=== PATIENT | female | born 1990 | race African-American/Black ===

== ENCOUNTER 2017-08-23 22:53 | Emergency (ER) | payer BC ==
[2017-08-23 23:32] LABS: APPEARANCE,URINE CLEAR; BILIRUBIN,URINE NEGATIVE (NEGATIVE); COLOR,URINE YELLOW; GLUCOSE, URINE NEGATIVE (NEGATIVE); KETONES,URINE NEGATIVE (NEGATIVE); LEUKOCYTE ESTERASE,URINE NEGATIVE (NEGATIVE); NITRITE,URINE NEGATIVE (NEGATIVE); PROTEIN,URINE NEGATIVE (NEGATIVE); URINE SPECIFIC GRAVITY 1.017; UROBILINOGEN,URINE NEGATIVE mg/dL (<2.0)
[2017-08-23 23:37] LABS: ABSOLUTE EOSINOPHILS # (AUTO) 0.1 10^3/uL (0.0-0.6); ABSOLUTE LYMPHOCYTES (AUTO) 1.7 10^3/uL (0.5-4.7); ABSOLUTE MONOCYTES (AUTO) 0.5 10^3/uL (0.1-1.4); ABSOLUTE NEUT (AUTO) 3.2 10^3/uL (1.7-8.2); BASOPHILS % (AUTO) 0.7 % (0-2); EOSINOPHILS % (AUTO) 1.4 % (0-6); HEMATOCRIT 35.5 % (36.0-47.0); HEMOGLOBIN 11.3 g/dL (12.0-15.5); LYMPHOCYTES % (AUTO) 31.1 % (13-45); MEAN CORPUSCULAR HEMOGLOBIN 24.9 pg (27.0-33.4); MEAN CORPUSCULAR HGB CONC 31.9 g/dL (32.0-36.0); MEAN CORPUSCULAR VOLUME 78 fl (80-97); MONOCYTES % (AUTO) 9.6 % (3-13); PLATELET COUNT 154 10^3/uL (150-450); RED BLOOD COUNT 4.55 10^6/uL (3.72-5.28); RED CELL DISTRIBUTION WIDTH 15.6 % (11.5-14.0); SEGMENTED NEUTROPHILS % (AUTO) 57.2 % (42-78); TOTAL CELLS COUNTED % (AUTO) 100 %; WHITE BLOOD COUNT 5.5 10^3/uL (4.0-10.5)
[2017-08-23 23:46] LABS: ALANINE AMINOTRANSFERASE 22 U/L (9-52); ALKALINE PHOSPHATASE 64 U/L (38-126); ANION GAP 11 (5-19); ASPARTATE AMINO TRANSFERASE 17 U/L (14-36); BILIRUBIN,DIRECT 0.1 mg/dL (0.0-0.4); BILIRUBIN,TOTAL 0.3 mg/dL (0.2-1.3); BLOOD UREA NITROGEN 7 mg/dL (7-20); CALCIUM 9.2 mg/dL (8.4-10.2); CARBON DIOXIDE 23 mmol/L (22-30); CHLORIDE 104 mmol/L (98-107); GLUCOSE 116 mg/dL (75-110); LIPASE 101.1 U/L (23-300); SODIUM 137.6 mmol/L (137-145); TOTAL PROTEIN 6.9 g/dL (6.3-8.2)
--- NOTE | 2017-08-24 01:39 | ER Document Report ---
ED General - General Chief Complaint: Abdominal Pain Stated Complaint: ABDOMINAL PAIN Time Seen by Provider: 08/23/17 23:16 Notes: Patient is a 27 year old female without past medical history, no prior surgical history who presents with 3 days of left lower quadrant abdominal pain. She does describe this as a dull, constant, cramping pain. States that it has been worsening since onset 3 days ago. Nothing improves or worsens this pain. She denies any history of similar symptoms in the past. No vaginal bleeding or discharge. She reports that her last menstrual period was on August 18. She has not seen her primary care doctor regarding today's concerns. She denies any associated fever, vomiting, diarrhea, headache or neck pain. TRAVEL OUTSIDE OF THE [place] IN LAST 30 DAYS: No - Related Data Allergies/Adverse Reactions: cetirizine HCl [From [facility]] Allergy (Unknown, Verified 08/23/17 23:23) Past Medical History - General Information source: Patient - Social History Smoking Status: Never Smoker Frequency of alcohol use: None Drug Abuse: None Lives with: Family Family History: Reviewed & Not Pertinent Patient has suicidal ideation: No Patient has homicidal ideation: No Renal/ Medical History: Denies: Hx Peritoneal Dialysis - Immunizations Immunizations up to date: Yes Hx Diphtheria, Pertussis, Tetanus Vaccination: Yes Hx Pneumococcal Vaccination: 05/20/00 Review of Systems - Review of Systems Notes: Constitutional: Negative for fever. HENT: Negative for sore throat. Eyes: Negative for visual changes. Cardiovascular: Negative for chest pain. Respiratory: Negative for shortness of breath. Gastrointestinal: Positive for abdominal pain Genitourinary: Negative for dysuria. Musculoskeletal: Negative for back pain. Skin: Negative for rash. Neurological: Negative for headaches, weakness or numbness. 10 point ROS negative except as marked above and in HPI. Physical Exam - Vital signs Vitals: Temp Pulse Resp BP Pulse Ox 98.3 F 82 18 118/62 99 08/23/17 23:03 08/23/17 23:03 08/23/17 23:03 08/23/17 23:03 08/23/17 23:03 Interpretation: Normal Notes: PHYSICAL EXAMINATION: GENERAL: Well-appearing, well-nourished and in no acute distress. HEAD: Atraumatic, normocephalic. EYES: Pupils equal round and reactive to light, extraocular movements intact, sclera anicteric, conjunctiva are normal. ENT: nares patent, oropharynx clear without exudates. Moist mucous membranes. NECK: Normal range of motion, supple without lymphadenopathy LUNGS: Breath sounds clear to auscultation bilaterally and equal. No wheezes rales or rhonchi. HEART: Regular rate and rhythm without murmurs ABDOMEN: Soft, mild left lower abdominal pain but no other localized pain on palpation, normoactive bowel sounds. No guarding, no rebound. No masses appreciated. EXTREMITIES: Normal range of motion, no pitting or edema. No cyanosis. NEUROLOGICAL: No focal neurological deficits. Moves all extremities spontaneously and on command. PSYCH: Normal mood, normal affect. SKIN: Warm, Dry, normal turgor, no rashes or lesions noted. Course - Re-evaluation Re-evalutation: 08/24/17 01:37 Patient is currently and presenting with lower abdominal pain. No vaginal bleeding or discharge. Patient transvaginal ultrasound does show an intrauterine although no heart rate at this time. Patient denies any dysuria and urinalysis is not consistent with an acute urinary tract infection. The patient does not have any focal right lower quadrant tenderness , rebound or guarding to suggest acute appendicitis. No right upper quadrant tenderness to suggest cholestasis of or an acute cholecystitis. Patient has tolerated oral intake here in the emergency department without difficulty. Vitals are within normal limits. At this time will discharge with return precautions and follow-up recommendations. Verbal discharge instructions given a the bedside and opportunity for questions given. Medication warnings reviewed. Patient is in agreement with this plan and has verbalized understanding of return precautions and the need for primary care follow-up in the next 24-72 hours. - Vital Signs Vital signs: Temp Pulse Resp BP Pulse Ox 98.3 F 82 18 118/62 99 08/23/17 23:03 08/23/17 23:03 08/23/17 23:03 08/23/17 23:03 08/23/17 23:03 - Laboratory Result Diagrams: 08/23/17 23:19 08/23/17 23:19 Laboratory results interpreted by me: 08/23/17 08/23/17 08/23/17 23:19 23:19 23:19 Hgb 11.3 L Hct 35.5 L MCV 78 L MCH 24.9 L MCHC 31.9 L RDW 15.6 H Glucose 116 H Serum HCG, Qual POSITIVE H Beta HCG, Quant 08/23/17 23:19 Hgb Hct MCV MCH MCHC RDW Glucose Serum HCG, Qual Beta HCG, Quant 81406.00 H - Diagnostic Test Radiology reviewed: Image reviewed, Reports reviewed Discharge - Discharge Clinical Impression: Abdominal pain, left lower quadrant, First trimester Condition: Good Disposition: HOME, SELF-CARE Additional Instructions: You were seen for abdominal pain during . Your ultrasound shows an intrauterine that does not yet have a heart rate. The exact cause your pain is uncertain but is likely related to your developing baby. Please follow-up with your GLOVE TAGGER in the next 24-48 hours. Return to the emergency department immediately if you have worsening of your pain, have persistent vomiting, develop a fever of greater than 100.4F, begin to have vaginal bleeding, or any other symptoms that are worrisome to you. Referrals: LICO MORENO MD [ACTIVE STAFF] - 08/26/17
--- NOTE | 2017-08-24 01:57 | RADIOLOGY REPORT (SQ) ---
EXAM DESCRIPTION: U/S OB TRANSVAGINAL W/O DOP CLINICAL HISTORY: 27 years Female, llq pain, preg. Last menstrual period reported as 08/18/2017 COMPARISON: None. TECHNIQUE: Complete first trimester obstetrical ultrasound with transvaginal imaging. FINDINGS: The uterus measures 12.9 x 7.0 x 7.8 cm. Within the lower portion of the endometrium there is a gestational sac. There is a pole within the gestational sac measuring 0.46 cm compatible with an estimated gestational age of 6 weeks, 1 day. No heart rate identified at this time. In the anterior uterine myometrium there is a hypodense structure measuring 1.3 cm which may represent a fibroid. The cervix measures 4.2 cm and is closed. No free pelvic fluid. The ovaries are not identified bilaterally. IMPRESSION: 1. There is a single intrauterine with an estimated gestational age of 6 weeks, 1 day. No heart rate is identified. Differential considerations include early normal versus demise. Close continued clinical, laboratory, and sonographic follow-up recommended.
[2017-08-24 02:10] VITALS: BP 113/76
== END 2017-08-24 02:10 | disposition home or self-care (01) ==
LOC: ER 22:53
DX: O26.91 Pregnancy related conditions, unspecified, first trimester (principal); R10.32 Left lower quadrant pain
CPT/HCPCS: 36415; 76817; 80053; 81001; 83690; 84702; 84703; 85025; 99284

== ENCOUNTER 2017-12-20 08:59 | Outpatient (CLI) | payer OTHER, BC, MEDICAID ==
[2017-12-20 09:35] LABS: APPEARANCE,URINE SLIGHTLY-CLOUDY; BILIRUBIN,URINE NEGATIVE (NEGATIVE); GLUCOSE, URINE NEGATIVE (NEGATIVE); KETONES,URINE NEGATIVE (NEGATIVE); LEUKOCYTE ESTERASE,URINE SMALL (NEGATIVE); NITRITE,URINE NEGATIVE (NEGATIVE); PROTEIN,URINE NEGATIVE (NEGATIVE); URINE SPECIFIC GRAVITY 1.026; UROBILINOGEN,URINE NEGATIVE mg/dL (<2.0)
[2017-12-20 09:36] LABS: COLOR,URINE YELLOW
[2017-12-20 10:02] LABS: URINE AMPHETAMINES SCREEN NEGATIVE; URINE BARBITURATES SCREEN NEGATIVE; URINE BENZODIAZEPINES SCREEN NEGATIVE; URINE COCAINE SCREEN NEGATIVE; URINE MARIJUANA (THC) SCREEN NEGATIVE; URINE METHADONE SCREEN NEGATIVE; URINE PHENCYCLIDINE SCREEN NEGATIVE
[2017-12-20 10:02] LABS: ABSOLUTE LYMPHOCYTES (AUTO) 1.5 10^3/uL (0.5-4.7); ABSOLUTE MONOCYTES (AUTO) 0.6 10^3/uL (0.1-1.4); ABSOLUTE NEUT (AUTO) 3.2 10^3/uL (1.7-8.2); BASOPHILS % (AUTO) 0.5 % (0-2); EOSINOPHILS % (AUTO) 0.8 % (0-6); HEMATOCRIT 35.3 % (36.0-47.0); HEMOGLOBIN 11.4 g/dL (12.0-15.5); LYMPHOCYTES % (AUTO) 28.5 % (13-45); MEAN CORPUSCULAR HEMOGLOBIN 26.8 pg (27.0-33.4); MEAN CORPUSCULAR HGB CONC 32.4 g/dL (32.0-36.0); MEAN CORPUSCULAR VOLUME 83 fl (80-97); MONOCYTES % (AUTO) 11.2 % (3-13); PLATELET COUNT 124 10^3/uL (150-450); RED BLOOD COUNT 4.27 10^6/uL (3.72-5.28); RED CELL DISTRIBUTION WIDTH 15.4 % (11.5-14.0); TOTAL CELLS COUNTED % (AUTO) 100 %; WHITE BLOOD COUNT 5.4 10^3/uL (4.0-10.5)
[2017-12-20 10:10] LABS: INTERNATIONAL RATION (INR) 0.99; PARTIAL THROMBOPLASTIN TIME 27.2 SEC (23.5-35.8); PROTHROMBIN TIME 13.6 SEC (11.4-15.4)
--- NOTE | 2017-12-20 10:35 | RADIOLOGY REPORT (SQ) ---
EXAM DESCRIPTION: U/S OB LIMITED COMPLETED DATE/TIME: 12/20/2017 10:25 am REASON FOR STUDY: s/p fall, eval placenta, FWB COMPARISON: 08/24/2017 TECHNIQUE: Limited transabdominal grayscale ultrasound for evaluation of specific requested obstetri norma parameters. LIMITATIONS: None. FINDINGS: CERVICAL LENGTH: 3.8 cm Closed. RAJENDRA: 11.1 cm. FHR: 153 beats per minute. PRESENTATION: Cephalic. OTHER: Gestational age 22 weeks 4 days. Placenta is posterior and grade 1. There is no abruption. IMPRESSION: LIMITED OBSTETRICAL ULTRASOUND WITH MEASURED PARAMETERS DELINEATED ABOVE. Trimester of : Second trimester - 13 weeks 1 day to 27 weeks 6 days. TECHNICAL DOCUMENTATION: JOB ID: [id number] [employer]- All Rights Reserved Reading location - IP/workstation name: [email or web address]
== END 2017-12-20 11:06 | disposition home or self-care (01) ==
LOC: LC 08:59
PROVIDERS: ATTEND Student in an Organized Health Care Education/Training Program
PROC: 4A1HXCZ Monitoring of Products of Conception, Cardiac Rate, External Approach (ICD-10-PCS; principal; 2017-12-20)
DX: O26.892 Other specified pregnancy related conditions, second trimester (principal); R10.9 Unspecified abdominal pain; O09.32 Supervision of pregnancy with insufficient antenatal care, second trimester; Z3A.22 22 weeks gestation of pregnancy
CPT/HCPCS: 36415; 76815; 80307; 81001; 85025; 85362; 85610; 85730; 86850; 86900; 86901

== ENCOUNTER 2017-12-20 11:18 | Emergency (ER) | payer OTHER, BC, MEDICAID ==
[2017-12-20 11:25] VITALS: BP 109/66
[2017-12-20] MEDS ORDERED: ACETAMINOPHEN 325 MG TABLET PO ONE (11:40)
--- NOTE | 2017-12-20 11:43 | ER Document Report ---
HPI - HPI Patient complains to provider of: leg and back pain Onset: Just prior to arrival Onset/Duration: Sudden Quality of pain: Achy Severity: Moderate Pain Level: 3 Context: Presents emergency department with complaint of left thigh and left lower back pain. She reports she was working at standard time was talking to someone and tripped over up with palate. Patient reports she fell full frontal onto the palate. She is 22 weeks . Upon arrival to the hospital she was sent up to L&D where she had abdominal ultrasound is reviewed for possible injury to fetus. Patient was cleared from L&D and sent to the emergency department. Denies other symptoms such as nausea. Patient has no complaints of vomiting diarrhea. Denies vaginal bleeding. Associated Symptoms: None Exacerbated by: Movement Relieved by: Denies Similar symptoms previously: Yes Recently seen / treated by doctor: Yes - CONSTITUTIONAL Constitutional: DENIES: Fever, Chills - EENT EENT: DENIES: Sore Throat, Ear Pain, Eye problems - NEURO Neurology: DENIES: Headache, Weakness, Vision blurred, Dizzinesss / Vertigo - CARDIOVASCULAR Cardiovascular: DENIES: Chest pain - RESPIRATORY Respiratory: DENIES: Trouble Breathing, Coughing - GASTROINTESTINAL Gastrointestinal: DENIES: Abdominal Pain, Black / Bloody Stools - URINARY Urinary: DENIES: Dysuria, Urgency, Frequency - REPRODUCTIVE Reproductive: REPORTS: : - MUSCULOSKELETAL Musculoskeletal: DENIES: Extremity pain Past Medical History - General Information source: Patient Last Menstrual Period: 22 weeks - Social History Smoking Status: Never Smoker Chew tobacco use (# tins/day): No Frequency of alcohol use: None Drug Abuse: None Family History: Reviewed & Not Pertinent Patient has suicidal ideation: No Patient has homicidal ideation: No - Medical History Medical History: Negative Renal/ Medical History: Denies: Hx Peritoneal Dialysis Surgical Hx: Negative - Immunizations Immunizations up to date: Yes Hx Diphtheria, Pertussis, Tetanus Vaccination: Yes Hx Pneumococcal Vaccination: 05/20/00 Vertical Provider Document - CONSTITUTIONAL Agree With Documented VS: Yes Exam Limitations: No Limitations General Appearance: WD/WN, Mild Distress - winces with movement to left thigh - INFECTION CONTROL TRAVEL OUTSIDE OF THE [place] IN LAST 30 DAYS: No - HEENT HEENT: Atraumatic, Normocephalic - NECK Neck: Supple - RESPIRATORY Respiratory: Breath Sounds Normal, No Respiratory Distress - CARDIOVASCULAR Cardiovascular: Regular Rate, Regular Rhythm - GI/ABDOMEN Gastrointestinal: Abdomen Soft - , slight ttp on LLQ. - BACK Back: Normal Inspection - No obvious deformity good distal movement and sensation complaints of left-sided low back pain with turning. ambulates without problems. - MUSCULOSKELETAL/EXTREMETIES Musculoskeletal/Extremeties: MAEW, FROM, Tender - left anterior/lateral thigh ttp, obvious deformity no swelling no ecchymosis good extension and flex sedation - NEURO Level of Consciousness: Awake, Alert, Appropriate Motor/Sensory: No Motor Deficit - DERM Integumentary: Warm, Dry Adult Front & Back Diagram: 1 - Veins of tender to palpation also reports hurts when she flexes leg 2 - reports sore, increased with turning. Course - Re-evaluation Re-evalutation: 12/20/17 11:55 She was instructed on ice packs and Tylenol for the pain. Patient was also instructed to return immediately to the emergency department for abdominal pain feelings of contractions vaginal bleed or any concerns. She was instructed to return to the emergency department for increased pain concerns vaginal bleeding or abdominal pain. She verbalized understanding. No x-rays done at this time patient has no obvious deformity good range of motion - Vital Signs Vital signs: Temp Pulse Resp BP Pulse Ox 98.3 F 81 16 109/66 100 12/20/17 11:24 12/20/17 11:24 12/20/17 11:24 12/20/17 11:24 12/20/17 11:24 Discharge - Discharge Clinical Impression: Fall, Left thigh pain, left lower back pain Condition: Stable Disposition: HOME, SELF-CARE Instructions: Acetaminophen, Ice Packs ([facility]), Low Back Pain ([facility]), Muscle Strain ([facility]) Additional Instructions: *You have been evaluated post fall for left sided lower back pain and left thigh pain *Take tylenol as indicated for pain *Rest/Ice packs, 20 minutes on 20 minutes off *Follow up with your STATION INSTALLATION SUPERVISOR Saturday for recheck *Return to ED for worsening condition, changes, needs, abdominal pain, bleeding , concerns Forms: Return to Work
== END 2017-12-20 11:52 | disposition home or self-care (01) ==
LOC: ER 11:18
DX: O26.92 Pregnancy related conditions, unspecified, second trimester (principal); M54.9 Dorsalgia, unspecified; M79.652 Pain in left thigh; W01.0XXA Fall on same level from slipping, tripping and stumbling without subsequent striking against object, initial encounter; Z3A.22 22 weeks gestation of pregnancy
CPT/HCPCS: 99283

== ENCOUNTER 2018-02-17 03:41 | Emergency (ER) | payer OTHER, BC, MEDICAID ==
[2018-02-17] MEDS ORDERED: LIDOCAINE 5% (700 MG) TRANSDERMAL ADH..PATCH TP ONE (05:38)
--- NOTE | 2018-02-17 05:51 | ER Document Report ---
HPI - HPI Pain Level: 5 Notes: Patient is a 27-year-old female who presents with chief complaint of left hip and left leg pain. Patient reports this pain has been ongoing for approximately 1 month after she fell. Patient is approximately 7 months , states she is already been seen her COMMODITIES TRADER and was cleared by them. Patient reports she has been taking Tylenol with minimal relief of her pain. Patient reports that she needs a work note to clear her from work. - REPRODUCTIVE Reproductive: REPORTS: : Past Medical History - General Information source: Patient - Social History Smoking Status: Never Smoker Frequency of alcohol use: None Drug Abuse: None Family History: Reviewed & Not Pertinent - Medical History Medical History: Negative Renal/ Medical History: Denies: Hx Peritoneal Dialysis Surgical Hx: Negative - Immunizations Immunizations up to date: Yes Hx Diphtheria, Pertussis, Tetanus Vaccination: Yes Hx Pneumococcal Vaccination: 05/20/00 Vertical Provider Document - CONSTITUTIONAL Notes: PHYSICAL EXAMINATION: GENERAL: Well-appearing, well-nourished and in no acute distress. HEAD: Atraumatic, normocephalic. EYES: Pupils equal round and reactive to light, extraocular movements intact, conjunctiva are normal. ENT: Nares patent, oropharynx clear without exudates. Moist mucous membranes. NECK: Normal range of motion, supple without lymphadenopathy LUNGS: Breath sounds clear to auscultation bilaterally and equal. No wheezes rales or rhonchi. HEART: Regular rate and rhythm without murmurs ABDOMEN: Soft, nontender, nondistended gravid abdomen. No guarding, no rebound. No masses appreciated. Female : No CVA tenderness Musculoskeletal: Normal range of motion, no pitting or edema. No cyanosis. Tenderness on palpation to left paraspinous area, no radiation of the pain. NEUROLOGICAL: Cranial nerves grossly intact. Normal speech, normal gait. Normal sensory, motor exams PSYCH: Normal mood, normal affect. SKIN: Warm, Dry, normal turgor, no rashes or lesions noted. Neurologist - INFECTION CONTROL TRAVEL OUTSIDE OF THE [place] IN LAST 30 DAYS: No Course - Re-evaluation Re-evalutation: Patient's physical examination is consistent with musculoskeletal strain. Patient will be instructed to continue taking Tylenol and will add on lidocaine patches as we are limited as to what we can treat her with due to her . Patient given work note for the next several days off of work. Patient is agreeable to this plan of care and agrees to follow-up with her OB/ NON DESTRUCTIVE TESTING SUPERVISOR. - Vital Signs Vital signs: Temp Pulse Resp BP Pulse Ox 97.8 F 81 20 117/68 100 02/17/18 03:44 02/17/18 03:44 02/17/18 03:44 02/17/18 03:44 02/17/18 03:44 Discharge - Discharge Clinical Impression: Low back pain Qualifiers: Chronicity: unspecified Back pain laterality: left Sciatica presence: without sciatica Qualified Code(s): M54.5 - Low back pain Condition: Stable Disposition: HOME, SELF-CARE Additional Instructions: LOW BACK PAIN: Three out of every four people will have an episode of disabling back pain during their lifetime. Most commonly the pain is due to straining of the muscles and ligaments in the low back. Usual treatment includes: (1) Rest on a firm surface. Avoid lying on your stomach. (2) Ice pack the painful area. After a few days, gentle heat may be used intermittently to relax the area, or ice packs can be continued. (3) Medication may be needed -- muscle relaxers and antiinflammatory medicines are commonly used. (4) As the back improves, exercises are prescribed to strengthen the back and abdominal muscles. Your doctor will advise you on the proper care for your back at each stage in your recovery. You may be better in a few days -- or healing may take several weeks. If new symptoms of a "herniated disc" (radiation of pain, numbness, or tingling down the back of the leg or weakness in the leg) occur, you should be re-examined. Further testing may be necessary. ICE PACKS: Apply ice packs frequently against the painful area. Many different schedules are recommended, such as "20 minutes on, 20 minutes off" or "one hour ice, two hours rest." If you need to work, you may need to go longer between ice treatments. You should plan to have the area ice packed AT LEAST one fourth of the time. The ice should be applied over the wrap, tape, or splint, or over a layer of cloth -- not directly against the skin. Some ice bags have a built-in cloth and can be put directly on the skin. WARM PACKS: After approximately two days, apply gentle heat (such as a heating pad or hot water bottle) for about 20 to 30 minutes about every two hours -- at least four times daily. Warmth and elevation will help you make a more rapid recovery , and will ease the pain considerably. Do not use HOT heat, and never apply heat for longer than 30 minutes. The continuous heat can invisibly damage skin and muscles -- even when no burn is seen on the surface. Damaged muscles can make you MORE sore. FOLLOW-UP CARE: If you have been referred to a physician for follow-up care, call the physician s office for an appointment as you were instructed or within the next two days. If you experience worsening or a significant change in your symptoms, notify the physician immediately or return to the Emergency Department at any time for re-evaluation. Please follow-up with your Workmen's Comp. provider regarding today's flareup of your back pain. Use the Lidoderm patches, you can apply one and leave it on for 12 hours. You may also take Tylenol safely during for your pain symptoms. Prescriptions: Lidocaine [Lidoderm 5% (700 mg) Transdermal Patch] 1 patch TP DAILY #30 adh..patch Forms: Return to Work
[2018-02-17 06:54] VITALS: BP 105/64
== END 2018-02-17 06:45 | disposition home or self-care (01) ==
LOC: ER 03:41
DX: O99.89 Other specified diseases and conditions complicating pregnancy, childbirth and the puerperium (principal); M54.5 Low back pain; M25.552 Pain in left hip; M79.605 Pain in left leg; W19.XXXA Unspecified fall, initial encounter; Z3A.00 Weeks of gestation of pregnancy not specified
CPT/HCPCS: 99283

== ENCOUNTER 2018-04-20 23:19 | Outpatient (CLI) | payer BC, MEDICAID ==
[2018-04-21 00:01] LABS: APPEARANCE,URINE SLIGHTLY-CLOUDY; BILIRUBIN,URINE NEGATIVE (NEGATIVE); COLOR,URINE STRAW; GLUCOSE, URINE NEGATIVE (NEGATIVE); KETONES,URINE NEGATIVE (NEGATIVE); LEUKOCYTE ESTERASE,URINE TRACE (NEGATIVE); NITRITE,URINE NEGATIVE (NEGATIVE); PROTEIN,URINE NEGATIVE (NEGATIVE); URINE SPECIFIC GRAVITY 1.006; UROBILINOGEN,URINE NEGATIVE mg/dL (<2.0)
[2018-04-21 04:19] LABS: URINE AMPHETAMINES SCREEN NEGATIVE; URINE BARBITURATES SCREEN NEGATIVE; URINE BENZODIAZEPINES SCREEN NEGATIVE; URINE MARIJUANA (THC) SCREEN NEGATIVE; URINE METHADONE SCREEN NEGATIVE; URINE PHENCYCLIDINE SCREEN NEGATIVE
[2018-04-21 04:39] LABS: URINE COCAINE SCREEN NEGATIVE
== END 2018-04-21 01:23 | disposition home or self-care (01) ==
LOC: LC 23:19
PROVIDERS: ATTEND Obstetrics & Gynecology
PROC: 4A1HXCZ Monitoring of Products of Conception, Cardiac Rate, External Approach (ICD-10-PCS; principal; 2018-04-20)
DX: O47.1 False labor at or after 37 completed weeks of gestation (principal); Z3A.39 39 weeks gestation of pregnancy
CPT/HCPCS: 80307; 81005

== ENCOUNTER 2018-04-21 12:48 | Inpatient (IN) | payer BC, MEDICAID ==
[2018-04-21] MEDS ORDERED: MISOPROSTOL 0.2 MG TABLET ONE (13:32)
[2018-04-21] MEDS ORDERED: LIDOCAINE 1% INJ-PF (10 MG/ML) 30 ML SDV ONE (13:32)
[2018-04-21] MEDS ORDERED: OXYTOCIN/NORMAL SALINE 20 UNIT/1,000 ML RTUINJ ONE (13:32)
[2018-04-21] MEDS ORDERED: PENICILLIN G-K 5 MILLION UNIT VIAL ONE (13:42)
--- NOTE | 2018-04-21 13:42 | Admission Physical ---
Datetime Report Generated by CPN: 04/21/2018 13:41 CURRENT ADMISSION Hx Assessment: The History has been Reviewed and is Current Chief Complaint: Uterine Contractions Indication for Induction: Not Applicable Admit Impression : Term, Intrauterine ; Active Labor Admit Plan: Admit to Unit; Initiate Labor Protocol ALLERGIES Medication Allergies: Yes Medication Allergies: cetirizine HCl (04/21/2018) Latex: No Latex Allergies Food Allergies: N/A OBSTETRICAL HISTORY EDC: 04/22/2018 00:00 : 4 Para: 3 Gestational Diabetes: No Rh Sensitization: No Incompetent Cervix: No CELINA: No Infertility: No ART Treatment: No Uterine Anomaly: No IUGR: No Hx Previous C/S: No Macrosomia: No Hx Loss/Stillborn: No PIH: No Hx : No Placenta Previa/Abruption: No Depression/PP Depression: No PTL/PROM: No Post Hemorrhage: No Current Procedures: Ultrasound Obstetrical History Comments: G1 - 2008, , Boy, 41 weeks G2 - 2012, , Girl, 38 weeks G3 - 2013, , Girl, 36 weeks G4 - Current SEE RECORDS Alcohol: No Marijuana : No Cocaine: No Other Illicit Drugs: No Cigarettes: Never Smoker. [id number] MEDICAL HISTORY Diabetes: No Blood Transfusion: No Pulmonary Disease (Asthma, TB): No Breast Disease: No Hypertension: No Hotel Services Sales Representative Surgery: No Heart Disease: No Hosp/Surgery: No Autoimmune Disorder: No Anesthetic Complications: No Kidney Disease: No Abnormal Pap Smear: No Neuro/Epilepsy: No Psychiatric Disorders: No Other Medical Diseases: No Hepatitis/Liver Disease: No Significant Family History: No Varicosities/Phlebitis: No Trauma/Violence : No Thyroid Dysfunction: No INFECTIOUS HISTORY Gonorrhea: No Genital Herpes: No Chlamydia: No Tuberculosis: No Syphilis: No Hepatitis: No HIV/AIDS Exposure: No Rash or Viral Illness: No HPV: No PHYSICAL EXAM General: Normal HEENT: Deferred Neurologic: Normal Thyroid: Normal Heart: Normal Lungs: Normal Breast: Deferred Back: Normal Abdomen: Normal Genitourinary Exam: Normal Extremities: Normal DTRs: Normal Pelvic Type: Adequate Physical Exam Comments: EDC - Pelvis proven 8-7 declined flu vaccine Obesity, BMI 41.6 GTT WNL FETUS A EGA: 39.6 Monitoring: External US FHR- Baseline: 140 Variability: Moderate 6-25bpm Decelerations: None Admit Comment: Admitted to in active labor, seen at [facility] this AM and she was 5cm, was told to come here for delivery since she had to return to [facility], now 6cm, uc's q 4-5 min GBS done at 35 weeks but we do not have results, rev records, will treat for GBS POC discussed, does not want epidural, Cat 1 strip PLANS FOR LABOR AND DELIVERY Labor and Delivery: Placenta Request Pain Management: Natural Feeding Preference: Breast Benefit of Breast Feed Discussed: Yes Circumcision: N/A INFORMED CONSENT Assignment: Freya Adan CNM Signature: with User ID: [email or web address] : with User ID: [email or web address]
[2018-04-21] MEDS ORDERED: RINGERS SOLUTION,LACTATED 1,000 ML IV PRN (14:02)
[2018-04-21 14:30] LABS: APPEARANCE,URINE SLIGHTLY-CLOUDY; BILIRUBIN,URINE NEGATIVE (NEGATIVE); COLOR,URINE YELLOW; GLUCOSE, URINE NEGATIVE (NEGATIVE); KETONES,URINE NEGATIVE (NEGATIVE); LEUKOCYTE ESTERASE,URINE SMALL (NEGATIVE); NITRITE,URINE NEGATIVE (NEGATIVE); PROTEIN,URINE NEGATIVE (NEGATIVE); URINE SPECIFIC GRAVITY 1.013; UROBILINOGEN,URINE NEGATIVE mg/dL (<2.0)
[2018-04-21 14:35] LABS: URINE BARBITURATES SCREEN NEGATIVE; URINE BENZODIAZEPINES SCREEN NEGATIVE; URINE COCAINE SCREEN NEGATIVE; URINE MARIJUANA (THC) SCREEN NEGATIVE; URINE METHADONE SCREEN NEGATIVE; URINE PHENCYCLIDINE SCREEN NEGATIVE
[2018-04-21 14:45] LABS: URINE AMPHETAMINES SCREEN NEGATIVE
[2018-04-21 15:01] LABS: ABSOLUTE LYMPHOCYTES (AUTO) 1.2 10^3/uL (0.5-4.7); ABSOLUTE MONOCYTES (AUTO) 0.6 10^3/uL (0.1-1.4); ABSOLUTE NEUT (AUTO) 3.5 10^3/uL (1.7-8.2); BASOPHILS % (AUTO) 0.6 % (0-2); EOSINOPHILS % (AUTO) 0.4 % (0-6); HEMATOCRIT 39.1 % (36.0-47.0); HEMOGLOBIN 13.2 g/dL (12.0-15.5); LYMPHOCYTES % (AUTO) 22.5 % (13-45); MEAN CORPUSCULAR HEMOGLOBIN 28.2 pg (27.0-33.4); MEAN CORPUSCULAR HGB CONC 33.6 g/dL (32.0-36.0); MEAN CORPUSCULAR VOLUME 84 fl (80-97); MONOCYTES % (AUTO) 10.8 % (3-13); RED BLOOD COUNT 4.67 10^6/uL (3.72-5.28); RED CELL DISTRIBUTION WIDTH 14.9 % (11.5-14.0); SEGMENTED NEUTROPHILS % (AUTO) 65.7 % (42-78); TOTAL CELLS COUNTED % (AUTO) 100 %; WHITE BLOOD COUNT 5.3 10^3/uL (4.0-10.5)
[2018-04-21 15:29] LABS: PLATELET COUNT 90 10^3/uL (150-450)
[2018-04-21] MEDS ORDERED: GLYCERIN/WITCH HAZEL LEAF 1 EACH MED..PAD TP PRN (15:56)
[2018-04-21] MEDS ORDERED: MEASLES,MUMPS&RUBELLA VACC/PF 0.5 ML VIAL SUBCUT PRN (15:56)
[2018-04-21] MEDS ORDERED: DIPHENHYDRAMINE HCL 25 MG CAPSULE PO PRN (15:56)
[2018-04-21] MEDS ORDERED: PROMETHAZINE HCL 25 MG TABLET PO PRN (15:56)
[2018-04-21] MEDS ORDERED: PROMETHAZINE HCL 25 MG SUPP.RECT PR PRN (15:56)
[2018-04-21] MEDS ORDERED: PROMETHAZINE HCL INJ 25 MG/1 ML VIAL IV PRN (15:56)
[2018-04-21] MEDS ORDERED: OXYTOCIN/NORMAL SALINE 20 UNIT/1,000 ML RTUINJ IV PRN (15:56)
[2018-04-21] MEDS ORDERED: DIBUCAINE 1% OINTMENT 28 GM TP PRN (15:56)
[2018-04-21] MEDS ORDERED: MAGNESIUM HYDROXIDE SUSP 30 ML UDCUP PO PRN (15:56)
[2018-04-21] MEDS ORDERED: BENZOCAINE/MENTHOL AEROSOL SPRAY 56 ML TOP PRN (15:56)
[2018-04-21] MEDS ORDERED: PSEUDOEPHEDRINE HCL 30 MG TABLET PO PRN (15:56)
[2018-04-21] MEDS ORDERED: DIPH/PERTUSS(ACELL)/TETANUS VAC/PF 0.5 ML SYR (>=10YO) IM PRN (15:56)
[2018-04-21] MEDS ORDERED: NA PHOS,M-B/NA PHOS,DI-BA (ADULT) 133 ML ENEMA PR PRN (15:56)
[2018-04-21] MEDS ORDERED: MISOPROSTOL 0.2 MG TABLET PR PRN (15:56)
[2018-04-21] MEDS ORDERED: ACETAMINOPHEN 650 MG SUPP.RECT PR PRN (15:56)
[2018-04-21] MEDS ORDERED: IBUPROFEN 800 MG TABLET ONE (16:15)
--- NOTE | 2018-04-21 16:40 | Warning Signs in Babies ---
VOD Warning Signs Datetime Report Generated by [facility]: 04/21/2018 16:39 VOD#608 -Warning Signs in Babies: Needs to be viewed. (12/20/2017 09:09:Montserrat Amaya RN)
--- NOTE | 2018-04-21 17:59 | Delivery Summary ---
Del Sum A-C Datetime Report Generated by CPN: 04/21/2018 17:59 DELIVERY PERSONNEL DELIVERY PERSONNEL: [id number] Delivery Doctor:: Laurence Alvares CNM Labor and Delivery Nurse:: Montserrat Amaya RNdesign verification engineer Nurse:: Regina Jeffries RN Cycle Director/SERVICE DIRECTOR: Samantha Otto SERVICE DIRECTOR II Additional Personnel: : Serge Wolf, LEONIE MATERNAL INFORMATION Delivery Anesthesia: None Medications After Delivery: Pitocin Bolus-Please Comment; Pitocin Drip 20 Units/1000ml NSS; Cytotec 1000mcg Per Rectum/Vagina Maternal Complications: None Provider Comments: AROM and started pushing, viable fermale from OA to RACQUEL over intact perineum, NC x1 and x1 around leg, reduced after delivery, baby placed on mothers abd, cord clamped and cut after 2 minutes, cord blood obtained, spont delivery of grossly normal intact placenta, 3 VC, several superficial lacerations in vagina, no repair needed Uterine atony, massaged with clots, IV Pitocin 1000mcg cytotec in rectum Baby and mom remains in recovery in stable condition LABOR SUMMARY EDC: 04/22/2018 00:00 No. Babies in Womb: 1 Attempted: No Labor Anesthesia: None LABOR INFORMATION Reason for Induction: Not Applicable Onset of Labor: 04/21/2018 14:00 Complete Dilatation: 04/21/2018 15:31 Oxytocin: N/A Group B Beta Strep: NEGATIVE Antibiotics # of Doses: 0 Steroids Given: None Reason Steroids Not Administered: Not Applicable MEMBRANES Membranes Rupture Method: Artificial Rupture of Membranes: 04/21/2018 15:31 Length of Rupture (hr): 0.10 Amniotic Fluid Color: Clear Amniotic Fluid Amount: Small STAGES OF LABOR Stage 1 hr: 1 Stage 1 min: 31 Stage 2 hr: 0 Stage 2 min: 6 Stage 3 hr: 0 Stage 3 min: 6 Total Time in Labor hr: 1 Total Time in Labor min: 43 VAGINAL DELIVERY Episiotomy: None Laceration #1: None Laceration Extension #1: N/A Other Laceration: SUPERFICIAL ABRASIONS Laceration Repair: No Sponge Count Correct: N/A Sharps Count Correct: N/A BABY A INFORMATION Infant Delivery Date/Time: 04/21/2018 15:37 Method of Delivery: Vaginal Born in Route : No : N/A Forceps: N/A Vacuum Extraction: N/A Shoulder Dystocia : No PRESENTATION/POSITION BABY A Presentation: Cephalic Cephalic Presentation: Vertex Vertex Position: Right Occipital Anterior Breech Presentation: N/A PLACENTA INFORMATION BABY A Placenta Delivery Time : 04/21/2018 15:43 Placenta Method of Delivery: Spontaneous Placenta Status: Delivered SCORES BABY A Heart Rate 1 min: >100 bpm Resp Effort 1 min: Slow, Irregular Reflex Irritability 1 min: Cough or Sneeze or Pulls Away Muscle Tone 1 min: Active Motion Color 1 min: Body [place], Extremities Blue Resuscitation Effort 1 min: Tactile Stimulation SCORE 1 MIN: 8 Heart Rate 5 min: >100 bpm Resp Effort 5 min: Slow, Irregular Reflex Irritability 5 min: Cough or Sneeze or Pulls Away Muscle Tone 5 min: Active Motion Color 5 min: Body [place], Extremities Blue Resuscitation Effort 5 min: Tactile Stimulation SCORE 5 MIN: 8 INFORMATION BABY A Gestational Age at Delivery: 39.6 Gestational Status: Full Term- 39- 40.6 Weeks Infant Outcome : Liveborn Infant Condition : Stable Infant Sex: Female IDENTIFICATION BABY A Infant Verification Date/Time: 04/21/2018 16:08 ID Band Number: [id number] Mother's Name Verified: Yes RN Verifying : Rosario Wolf Additional Verifying Personnel: A. Fam WEIGHT/LENGTH BABY A Infant Birthweight (gm): 2770 Weight (lb): 6 Weight (oz): 2 Length (in): 19.00 Infant Length (cm): 48.26 CORD INFORMATION BABY A No. Cord Vessels: 3 Nuchal Cord : Around Neck x1, Loose Nuchal Cord- Other: LEG Cord Blood Taken: Yes-For Storage (Mom's Blood type +) Suction: None ASSESSMENT BABY A Infant Complications: None Physical Findings at Delivery: Within Normal Limits Infant Respirations: Appears Normal Skin to Skin: Yes Skin to Skin Time (min): 60 Oil Process [place]/ALS Called : No Care By: Heidy WOLF RN Transferred To: Remains with Mother BABY B INFORMATION : N/A
[2018-04-21] MEDS: DOCUSATE SODIUM 100 MG CAPSULE PO SCH (18:02)
[2018-04-21] MEDS: FERROUS SULFATE 325 MG TABLET PO SCH (18:02)
[2018-04-21 19:46] LABS: CHLAM PCR NOT DETECTED (NOT DETECT); GON PCR NOT DETECTED (NOT DETECT)
[2018-04-21] MEDS: FAMOTIDINE 20 MG TABLET PO SCH (21:17)
[2018-04-21] MEDS: IBUPROFEN 800 MG TABLET PO SCH (21:18)
[2018-04-22] MEDS: IBUPROFEN 800 MG TABLET PO SCH ×3 (06:15→21:48)
[2018-04-22] MEDS: ACETAMINOPHEN WITH CODEINE #3 TABLET PO PRN (06:16)
[2018-04-22 07:28] LABS: HEMATOCRIT 36.3 % (36.0-47.0); HEMOGLOBIN 12.3 g/dL (12.0-15.5); MEAN CORPUSCULAR HEMOGLOBIN 28.5 pg (27.0-33.4); MEAN CORPUSCULAR HGB CONC 33.9 g/dL (32.0-36.0); MEAN CORPUSCULAR VOLUME 84 fl (80-97); RED BLOOD COUNT 4.32 10^6/uL (3.72-5.28); RED CELL DISTRIBUTION WIDTH 15.3 % (11.5-14.0); WHITE BLOOD COUNT 7.4 10^3/uL (4.0-10.5)
[2018-04-22 07:45] LABS: PLATELET COUNT 94 10^3/uL (150-450)
[2018-04-22] MEDS: FAMOTIDINE 20 MG TABLET PO SCH ×2 (09:12→21:48)
[2018-04-22] MEDS: FERROUS SULFATE 325 MG TABLET PO SCH ×2 (09:12→17:59)
[2018-04-22] MEDS: DOCUSATE SODIUM 100 MG CAPSULE PO SCH ×2 (09:12→17:59)
[2018-04-22] MEDS: PRENATAL VITAMIN W DHA CAPSULE PO SCH (09:12)
[2018-04-22] MEDS ORDERED: SENNOSIDES/DOCUSATE 8.6-50 MG 1 EACH TABLET PO SCH (10:00)
--- NOTE | 2018-04-22 10:04 | PDOC PROGRESS REPORT ---
Subjective Progress Note for:: 04/22/18 Subjective:: Patient states that she feels good; decreasing lochia. She denies chest pain, shortness of breath, fever/chills and nausea/vomiting. She is ambulating and voiding without difficulty. Reason For Visit: Physical Exam - Physical Exam Vital Signs: Temp Pulse Resp BP Pulse Ox 98.5 F 86 22 H 110/67 98 04/22/18 08:37 04/22/18 08:37 04/22/18 08:37 04/22/18 08:37 04/22/18 08:37 Intake & Output 04/21/18 04/22/18 04/23/18 06:59 06:59 06:59 Intake Total 600 Balance 600 Weight 114.3 kg General appearance: PRESENT: no acute distress Respiratory exam: PRESENT: clear to auscultation onur Cardiovascular exam: PRESENT: RRR GI/Abdominal exam: PRESENT: normal bowel sounds, soft Extremities exam: ABSENT: calf tenderness, clubbing, full ROM, joint swelling, pedal edema, tenderness, +1 edema, +2 edema, other Result Laboratory Results: 04/22/18 06:39 04/21/18 04/21/18 04/21/18 12:56 14:45 14:45 WBC 5.3 RBC 4.67 Hgb 13.2 Hct 39.1 MCV 84 MCH 28.2 MCHC 33.6 RDW 14.9 H Plt Count 90 L Seg Neutrophils % 65.7 Lymphocytes % 22.5 Monocytes % 10.8 Eosinophils % 0.4 Basophils % 0.6 Absolute Neutrophils 3.5 Absolute Lymphocytes 1.2 Absolute Monocytes 0.6 Absolute Eosinophils 0.0 Absolute Basophils 0.0 Urine Color YELLOW Urine Appearance SLIGHTLY-CLOUDY Urine pH 5.0 Ur Specific [place] 1.013 Urine Protein NEGATIVE Urine Glucose (UA) NEGATIVE Urine Ketones NEGATIVE Urine Blood LARGE H Urine Nitrite NEGATIVE Ur Leukocyte Esterase SMALL H Urine WBC (Auto) 10 Urine RBC (Auto) 2 Blood Type A POSITIVE Antibody Screen NEGATIVE 04/22/18 06:39 WBC 7.4 RBC 4.32 Hgb 12.3 Hct 36.3 MCV 84 MCH 28.5 MCHC 33.9 RDW 15.3 H Plt Count 94 L Seg Neutrophils % Lymphocytes % Monocytes % Eosinophils % Basophils % Absolute Neutrophils Absolute Lymphocytes Absolute Monocytes Absolute Eosinophils Absolute Basophils Urine Color Urine Appearance Urine pH Ur Specific [place] Urine Protein Urine Glucose (UA) Urine Ketones Urine Blood Urine Nitrite Ur Leukocyte Esterase Urine WBC (Auto) Urine RBC (Auto) Blood Type Antibody Screen Assessment & Plan - Diagnosis (1) Normal vaginal delivery Is this a current diagnosis for this admission?: Yes (2) Obesity complicating Qualifiers: Trimester: third trimester Qualified Code(s): O99.213 - Obesity complicating , third trimester Is this a current diagnosis for this admission?: Yes - Time Time Spent with patient: Less than 15 minutes Within: within 48 hours - Plan Summary Plan Summary: Plan: 1. Continue care
[2018-04-23] MEDS: IBUPROFEN 800 MG TABLET PO SCH (05:20)
[2018-04-23] MEDS: ACETAMINOPHEN WITH CODEINE #3 TABLET PO PRN (05:34)
[2018-04-23 08:47] VITALS: BP 104/75
--- NOTE | 2018-04-23 10:12 | PDOC DISCHARGE SUMMARY ---
Final Diagnosis Discharge Date: 04/23/18 - PP Day #2, doing well, Hx low Plt count, beastfeeding , A+ Rubella Immune - Final Diagnosis (2) Normal vaginal delivery Is this a current diagnosis for this admission?: Yes (3) Obesity complicating Is this a current diagnosis for this admission?: Yes Discharge Data - Discharge Medication Prescriptions: Acetaminophen with Codeine [Tylenol #3 Tablet] 1 each PO Q4HP PRN #30 tablet PRN Reason: Home Medications: No122/Iron/Folic Acid [ Multi Tablet] 1 tab PO DAILY 12/20/17 Acetaminophen with Codeine [Tylenol #3 Tablet] 1 each PO Q4HP PRN #30 tablet 10/04 Reason(s) for Admission: Onset of Labor Procedures: Ultrasound Intrapartum Procedure(s): Spontaneous Vaginal Delivery Complication(s): Other - super ficial abrasions - Diagnosis Test Laboratory: Temp Pulse Resp BP Pulse Ox 98.4 F 63 16 104/75 99 04/23/18 08:29 04/23/18 08:29 04/23/18 08:29 04/23/18 08:29 04/23/18 08:29 04/21/18 04/21/18 04/22/18 12:56 14:45 06:39 RBC 4.67 4.32 Hgb 13.2 12.3 Hct 39.1 36.3 Urine Opiates Screen NEGATIVE - Discharge information/Instructions Discharge Activity: Activity As Tolerated, Pelvic Rest Discharge Diet: As Tolerated, Regular Disposition: HOME, SELF-CARE Follow up with: [facility] in: 4, Weeks
[2018-04-23] MEDS: DOCUSATE SODIUM 100 MG CAPSULE PO SCH (11:16)
[2018-04-23] MEDS: FAMOTIDINE 20 MG TABLET PO SCH (11:19)
[2018-04-23] MEDS: PRENATAL VITAMIN W DHA CAPSULE PO SCH (11:19)
[2018-04-23] MEDS: FERROUS SULFATE 325 MG TABLET PO SCH (11:19)
== END 2018-04-23 15:20 | disposition home or self-care (01) | DRG 807 ==
LOC: LC 12:48 → LR 13:12 → 2S 18:46
PROVIDERS: ADMIT Obstetrics & Gynecology; ATTEND Obstetrics & Gynecology
PROC: 10E0XZZ Delivery of Products of Conception, External Approach (ICD-10-PCS; principal; 2018-04-21)
PROC: 4A1HXCZ Monitoring of Products of Conception, Cardiac Rate, External Approach (ICD-10-PCS; 2018-04-21)
DX: O99.214 Obesity complicating childbirth (principal); Z37.0 Single live birth; O69.81X0 Labor and delivery complicated by cord around neck, without compression, not applicable or unspecified; O70.0 First degree perineal laceration during delivery; O62.2 Other uterine inertia; Z3A.39 39 weeks gestation of pregnancy; E66.9 Obesity, unspecified
CPT/HCPCS: 36415; 80307; 81001; 85025; 85027; 86592; 86850; 86900; 86901; 87491; 87591; J2540; J2590; J3490

== ENCOUNTER 2018-08-22 08:30 | Emergency (ER) | payer OTHER, BC ==
[2018-08-22 08:35] VITALS: BP 119/79
[2018-08-22] MEDS ORDERED: IBUPROFEN 600 MG TABLET PO ONE (09:12)
--- NOTE | 2018-08-22 09:22 | ER Document Report ---
ED General - General Chief Complaint: Back Pain Stated Complaint: LOWER BACK PAIN Time Seen by Provider: 08/22/18 08:39 Primary Care Provider: FRANK PERALTA MD [ACTIVE STAFF] - Follow up in 3-5 days (or your primary care. ) Notes: Patient is a 28-year-old female that presents to the emergency department for chief complaint of low back pain. Patient reports that she injured her back almost 9 months ago, while she was at work, and it seems to have flared up over the past week, she is getting pain from the low back that is radiating down the left leg, does not go past the knee. She has some tingling, but denies having any paralysis in the left leg. She denies having any foot drop. Denies any saddle anesthesia or paresthesias, denies having any urinary incontinence, retention, or bowel incontinence. She denies any any fevers, chills, night sweats, denies IV drug use. Past Medical History: Chronic low back pain Past Surgical History: Tubal ligation Social History: Denies tobacco, alcohol or drug use. Family History: Reviewed and noncontributory for presenting illness Allergies: Reviewed, see documented allergy list. REVIEW OF SYSTEMS: Other than noted above, the 12 point review of systems was reviewed with the patient and were negative, all pertinent findings are included in the HPI. PHYSICAL EXAMINATION: Vital signs reviewed, nursing noted reviewed. GENERAL: Well-appearing, well-nourished and in no acute distress. HEAD: Atraumatic, normocephalic. EYES: Eyes appear normal, sclera anicteric, conjunctiva are normal. ENT: Moist mucous membranes. NECK: Normal range of motion, supple without lymphadenopathy LUNGS: Breath sounds clear to auscultation bilaterally and equal. No wheezes rales or rhonchi. HEART: Regular rate and rhythm without murmurs Back: No tenderness with palpation to the thoracic midline or paraspinal areas, there is tender to palpation to the paraspinal musculature of the lumbar spine bilaterally, worse on the left compared to the right. EXTREMITIES: Nontender, good range of motion, no pitting or edema. NEUROLOGICAL: No focal neurological deficits. Moves all extremities spontaneously Motor and sensory grossly intact on exam. Deep tendon reflexes are +2/4 bilaterally in the Achilles and patellar tendons PSYCH: Normal mood, normal affect. SKIN: Warm, Dry, normal turgor, no rashes or lesions noted on exposed skin TRAVEL OUTSIDE OF THE [place] IN LAST 30 DAYS: No - Related Data Allergies/Adverse Reactions: cetirizine HCl [From Zyrte] Allergy (Unknown, Verified 08/22/18 08:33) Past Medical History - Social History Smoking Status: Never Smoker Chew tobacco use (# tins/day): No Frequency of alcohol use: None Drug Abuse: None Family History: Reviewed & Not Pertinent Patient has suicidal ideation: No Patient has homicidal ideation: No Renal/ Medical History: Denies: Hx Peritoneal Dialysis Past Surgical History: Reports: Hx Tubal Ligation - Immunizations Immunizations up to date: Yes Hx Diphtheria, Pertussis, Tetanus Vaccination: Yes Hx Pneumococcal Vaccination: 05/20/00 Physical Exam - Vital signs Vitals: Temp Pulse Resp BP Pulse Ox 98.2 F 71 20 119/79 100 08/22/18 08:34 08/22/18 08:34 08/22/18 08:34 08/22/18 08:34 08/22/18 08:34 Course - Re-evaluation Re-evalutation: Patient seen and examined vital signs reviewed. Patient was evaluated and treated as appropriate for the patient's presenting symptoms and complaint, with consideration of any critical or life threatening conditions that may be associated with their obtained history and exam as noted above. Patient was treated with p.o. Motrin The patient was re-evaluated and was stable Evaluation was most consistent with acute on chronic low back pain, discussed with the patient treatment modalities, she is currently breast-feeding, and I advised her that the medications including prednisone and Robaxin should not be taken while breast-feeding, and was advised to not breast-feed during this period of time, which she was agreeable to, and she was advised also that she could take Motrin while breast-feeding as it is considered safe. Patient is agreeable to this plan of care. Her exam did not demonstrate any signs of acute or concerning etiologies of low back pain including cauda equina syndrome or conus medullaris syndrome or epidural abscess that she had no fever, no erythema over the skin, and no concerning signs as noted in HPI. Plan of care was discussed with the patient at this point, after careful consideration I feel that that patient can be discharged from the emergency department, the patient was educated treatments and reasons to return to the emergency department based on their presumed diagnosis as noted above, they were advised to followup with a primary care physician in 2-3 days. Patient was agreeable to plan of care. *Note is created using voice recognition software and may contain spelling, syntax or grammatical errors. - Vital Signs Vital signs: Temp Pulse Resp BP Pulse Ox 98.2 F 71 20 119/79 100 08/22/18 08:34 08/22/18 08:34 08/22/18 08:34 08/22/18 08:34 08/22/18 08:34 Discharge - Discharge Clinical Impression: Sciatica Qualifiers: Laterality: left Qualified Code(s): M54.32 - Sciatica, left side Condition: Stable Disposition: HOME, SELF-CARE Instructions: Sciatica ([facility]) Additional Instructions: While you are taking these medications, I recommend that you do not breast-feed, and that she do breast pump, and dispose of the breast milk, as they can adversely affect your child, when you are finished with the medications, you can resume breast-feeding. Prescriptions: Ibuprofen [Motrin 600 Mg Tablet] 600 mg PO TID #30 tablet Methocarbamol [Robaxin 750 mg Tablet] 750 mg PO Q8H PRN #20 tablet PRN Reason: back pain RX: Prednisone [Deltasone 10 mg Tablet] 50 mg PO DAILY 5 Days #25 tablet Forms: Return to Work Referrals: FRANK PERALTA MD [ACTIVE STAFF] - Follow up in 3-5 days (or your primary care. )
== END 2018-08-22 09:25 | disposition home or self-care (01) ==
LOC: ER 08:30
DX: M54.42 Lumbago with sciatica, left side (principal); Z88.8 Allergy status to other drugs, medicaments and biological substances
CPT/HCPCS: 99283